=== PATIENT | female | born 1995 | race Caucasian/White ===

== ENCOUNTER 2020-03-20 13:43 | Emergency (ER) | payer SELFPAY ==
[~2020-03-20] VITALS: Ht 165.1 cm; Wt 65.8 kg
[2020-03-20 14:00] VITALS: BP 123/69
--- NOTE | 2020-03-20 14:02 | NUR ---
ED Nurse Note: Pt walked into ED for abscess L buttocks. Pain is 8/10, no drainage. Pt is alert and orientedx4, ambulatory. Pt has been seen by ERMD. No other compliants. No nausea or vomiting, or COVID symptoms.
[2020-03-20] MEDS ORDERED: HYDROcodone/Acetamin 7.5/325 tab ORAL ONE (14:45)
[2020-03-20] MEDS ORDERED: Augmentin 875mg Tab ORAL ONE (14:45)
[2020-03-20] MEDS ORDERED: Lidocaine 2% 20mg/ml/EPI 0.01mg/ml 20ml INJ ONE (14:45)
--- NOTE | 2020-03-20 14:50 | Emergency Room Report ---
History of Present Illness General Chief Complaint: Skin Rash/Abscess Source: Patient Present Illness HPI 25-year-old female presents to the emergency department complaining of 10 out of 10 severity upper buttock pain, swelling, tenderness, erythema and abscess formation that has been progressive x4 days. Patient reports she has history of pilonidal abscess which required drainage twice in the last 3 months. Patient denies fevers or chills. Patient reports that she has moved here from [place] and has had a difficult time finding follow-up for definitive care which is surgical removal of the pilonidal cyst. She denies blood in the stool or discharge in her stool. Patient denies pain with bowel movements. Patient denies discharge at this time. Patient states she has been using hot compresses with no relief. She reports she is up-to-date with vaccinations. She denies any significant past medical history. Patient reports sitting or laying on her back exacerbates her pain. She denies itching, or lesions elsewhere. No other aggravating or relieving factors. Patient has not taken any medications prior to arrival. Allergies: Coded Allergies: No Known Allergies (Unverified , 03/20/20) COVID-19 Screening Contact w/high risk pt: No Experienced COVID-19 symptoms?: No COVID-19 Testing performed [employer] PROGRAMMER: No Patient History Past Medical History: see triage record Past Surgical History: none Pertinent Family History: none Last Menstrual Period: 03/08/20 Now: No Reviewed Nursing Documentation: PMH: Agreed; PSxH: Agreed Nursing Documentation-PMH Past Medical History: No History, Except For Review of Systems All Other Systems: negative except mentioned in HPI Physical Exam Vital Signs Date Time Temp Pulse Resp B/P (MAP) Pulse Ox O2 Delivery O2 Flow Rate FiO2 03/20/20 13:51 98.1 110 18 121/66 (84) 98 Room Air Sp02 EP Interpretation: reviewed, normal General Appearance: no apparent distress, alert, GCS 15, non-toxic Head: normocephalic, atraumatic Eyes: bilateral eye normal inspection, bilateral eye PERRL ENT: hearing grossly normal, normal voice Neck: full range of motion Respiratory: lungs clear, normal breath sounds, speaking full sentences Cardiovascular #1: regular rate, rhythm, tachycardia Gastrointestinal: normal bowel sounds, non tender, soft Rectal: deferred, other - infected pilonidal abscess. in the upper gluteal cleft, with erythema, swelling and fluctuance, lesion is approximately 1.5 cm in diameter. Genitourinary: normal inspection Musculoskeletal: back normal, normal range of motion, gait/station normal, non- tender Neurologic: alert, motor strength/tone normal, oriented x3, sensory intact, responsive, speech normal Psychiatric: judgement/insight normal Skin: other - infected pilonidal abscess. in the upper gluteal cleft, with erythema, swelling and fluctuance, lesion is approximately 1.5 cm in diameter. Lymphatic: no adenopathy Procedures Incision and Drainage Incision and Drainage : Consent: Emergent Site: Gluteal cleft left side Blade Size: 11 I & D Procedure: betadine prep, sterile drapes applied, sterile dressing applied Wound Location: other - gluteal cleft Wound's Depth, Shape: linear Wound Length (cm): 1 Wound Explored: contaminated - moderate amt. of foul smelling purulent d/c was expressed. innoculations were broking up ( minimal were found) Irrigated w/ Saline (ccs): 100 Anesthesia: Lidocaine w/ Epi Volume Anesthetic (ccs): 3 Splint Applied?: No Sling Applied?: No Patient Tolerated: Well Complications: None Medical Decision Making PA Attestation Dr. George Is my supervising Physician whom patient management has been discussed with. Diagnostic Impression: Primary Impression: Infected pilonidal cyst ER Course 25-year-old female presents to the emergency department complaining of 10 out of 10 severity upper buttock pain, swelling, tenderness, erythema and abscess formation that has been progressive x4 days. Patient reports she has history of pilonidal abscess which required drainage twice in the last 3 months. Patient denies fevers or chills. Patient reports that she has moved here from [place] and has had a difficult time finding follow-up for definitive care which is surgical removal of the pilonidal cyst. She denies blood in the stool or discharge in her stool. Patient denies pain with bowel movements. Patient denies discharge at this time. Patient states she has been using hot compresses with no relief. She reports she is up-to-date with vaccinations. She denies any significant past medical history. Patient reports sitting or laying on her back exacerbates her pain. She denies itching, or lesions elsewhere. No other aggravating or relieving factors. Patient has not taken any medications prior to arrival. Denies fevers or chills. Denies BRBPR, Constipation or rectal pain. pt. denies hx of pilonidal cysts or abscess. Ddx considered but are not limited to cellulitis, abscess, lamar-rectal abscess, hemorrhoid just to name a few. . Vital signs: Pt. tachycardic most likely secondary to pain, remaining VS are WNL, pt. is afebrile H&PE are most consistent with infected pilonidal abscess. in the upper gluteal cleft, with erythema, swelling and fluctuance, lesion is approximately 1.5 cm in diameter. ORDERS: pain med ED INTERVENTIONS: -I & D - Clare[place] PO -Augmentin PO Patient is given ED return precautions to return promptly with worsening or new symptoms. D/W this patient that definitive treatment would be surgical excision that would be arranged by her primary care provider. -I do not identify an emergent condition at this time. With current presentation, pt. is stable for close outpatient follow up and conservative treatment. D/w pt. to return promptly to ED with worsening or new symptoms.- Pt. verbalizes' understanding and agreement with proposed treatment plan.proposed treatment plan. DISCHARGE: At this time pt. is stable for d/c to home. Will provide printed patient care instructions, and any necessary prescriptions. Care plan and follow up instructions have been discussed with the patient prior to discharge. Last Vital Signs Date Time Temp Pulse Resp B/P (MAP) Pulse Ox O2 Delivery O2 Flow Rate FiO2 03/20/20 14:00 98.1 85 17 123/69 100 Room Air Status: improved Disposition: HOME, SELF-CARE Condition: Stable Scripts Docusate Sodium* (COLACE*) 100 Mg Capsule 100 MG ORAL THREE TIMES A DAY, #15 CAP Prov: Halina Lewis 03/20/20 Ibuprofen* (MOTRIN*) 600 Mg Tablet 600 MG ORAL THREE TIMES A DAY, #20 TAB Prov: Halina Lewis 03/20/20 Hydrocodone Bit/Acetaminophen 5-325* (NORCO 5-325 TABLET*) 1 Each Tablet 1 TAB ORAL Q4H PRN for For Pain, #10 TAB Prov: Halina Lewis 03/20/20 Amoxicillin/Potassium Clav 875-125* (AUGMENTIN 875-125 TABLET*) 1 Each Tablet 1 TAB ORAL TWICE A DAY for 7 Days, #14 TAB 1 Refill Prov: Halina Lewis 03/20/20 Referrals: NOT CHOSEN IPA/MD,REFERRING (PCP) Patient Instructions: Incision and Drainage of a Pilonidal Cyst, Pilonidal Cyst Additional Instructions: Take medications as directed. Do not drink alcohol, drive, or operate heavy machinery while taking [place] as this may cause drowsiness. Follow up with a Primary Care Provider in 3-5 days, even if your symptoms have resolved. --Please review list of primary care clinics, if you do not already have a primary care provider Return sooner to ED if new symptoms occur, or current symptoms become worse. Do not drink alcohol, drive, or operate heavy machinery while taking [place] as this may cause drowsiness. - Please note that this Emergency Department Report was dictated using [employer] chief nurse technology software, occasionally this can lead to erroneous entry secondary to interpretation by the dictation equipment. Halina Lewis Mar 20, 2020 14:50
[2020-03-20] MEDS ORDERED: IBUPROFEN600 M1 ORAL (15:29)
[2020-03-20] MEDS ORDERED: NORCO 5-325 TA1 EAC1 ORAL (15:29)
[2020-03-20] MEDS ORDERED: AUGMENTIN 875-1 EAC1 ORAL (15:29)
[2020-03-20] MEDS ORDERED: COLACE100 MG ORAL (15:56)
[2020-03-20 16:00] VITALS: BP 128/71
--- NOTE | 2020-03-20 16:01 | NUR ---
ER DISCHARGE NOTE: Patient is cleared to be discharged per ERMD, pt is aox4, on room air, with stable vital signs. pt was given dc and prescription instructions, pt was able to verbalize understanding, pt id band removed. pt is able to ambulate with steady gait. pt took all belongings. Pt rpovided gauze and tape. Pt provided teaching on wound care and f/u and medications.
[2020-03-20 16:02] VITALS: BP 120/74
== END 2020-03-20 16:03 | disposition home or self-care (01) ==
LOC: EMR 14:30
DX: L05.91 Pilonidal cyst without abscess (principal)
CPT/HCPCS: 99283